=== PATIENT | female | born 1955 | race Caucasian/White ===

== ENCOUNTER → 2020-09-09 | Outpatient (CLI) | payer OTHER | LOC: M.CT 09:00 | PROVIDERS: ATTEND Internal Medicine | DX: Z13.6 Encounter for screening for cardiovascular disorders (principal) ==

== ENCOUNTER → 2020-09-22 | Outpatient (CLI) | payer BC ==
[~2020-09-22] MED LIST: COZAAR 25 MG TA25 M2 PO; NAPROSYN500 MG PO; NORVASC 2.5 MG2.5 M1 PO; OMEPRAZOLE40 MG PO; PRAVACHOL 20 MG20 M1 PO; RESTORIL30 MG PO; SERTRALINE HCL100 MG PO; SPIRONOLACTONE25 M1 PO; STIOLTO RESPIMAT4 GM INH
--- NOTE | 2020-09-22 17:00 | EXE ---
[place] [address] STRESS ECHOCARDIOGRAM Name: ALOK NEVES Room: [facility]#: [id number] Admission: 09/22/20 Attend Phys: ArtemAlok Pratt, Discharge: Date of : 55 Date of Service: 09/22/20 1700 Report #: [id number] THIS REPORT FOR: cc: Angela Nathan MD, Kelly M. MD Blick, David R. MD [facility] ~ APPROVED REPORT Study performed: 09/22/2020 15:30:44 Exam: Dobutamine Stress Echo Indication: Dyspnea Patient Location: Out-Patient Stress Nurse: Kelly Guerrero RN Supervising Physician: Felix Maldonado MD Ht: 5 ft 6 in HR: 66 bpm BP: 145/65 mmHg Medical History Cardiac Risk Factors: Age, , Hyperlipidemia, HTN, DM, Tobacco History (Former), FHX of CAD Procedure The patient underwent a Pharmacological Stress Test using Dobutamine. Blood pressure, heart rate, and EKG were monitored. An Echocardiogram was performed by medication reconciliation technician in four stages in quad fashion. At peak stress, four selected images were obtained and placed side by side with resting images for comparison. Echo Enhancing Agent Indication: Endocardial border delineation Agent(s) / Amount(s) Used: Optison 10 cc Stress Test Details Stress Test: Pharmacological Stress Test using Dobutamine. Reason for pharmacologic stress test: physical limitation. HR Resting HR: 66 bpm Max Heart Rate (APMHR): 155 bpm Max HR Achieved: 136 bpm Target HR (85% APMHR): 131 bpm % of APMHR: 87 Recovery HR: 98 bpm HR response to stress: Normal [place] [address] STRESS ECHOCARDIOGRAM Name: ALOK NEVES Room: [facility]#: [id number] Admission: 09/22/20 Attend Phys: Kaushal Pratt, Discharge: Date of : 55 Date of Service: 09/22/20 1700 Report #: [id number] Resting BP: 145/65 mmHg Max BP: 205/68 mmHg Recovery BP: 129/68 mmHg BP response to stress: Normal blood pressure response to stress. ECG Resting ECG: Sinus Rhythm Stress ECG: Sinus Rhythm, nonspecific ST-T abnormalities ST Change: Upsloping ST depression Maximum ST Deviation: 1 mm Arrhythmia: VPC's Recovery ECG: Sinus Rhythm, nonspecific ST-T abnormalities Recovery ST Change: Upsloping ST depression Recovery ST Deviation: 0.5 mm Recovery Arrhythmia: VPC Clinical Reason for Termination: Completed protocol Pre-Stress Echo The resting Echocardiogram showed normal left ventricular contractility with an estimated Ejection Fraction of about 50-55%. Post-Stress Echo The stress Echocardiogram showed normal left ventricular contractility with an estimated Ejection Fraction of about 65-70%. Compared to rest, there were no stress-induced wall motion abnormalities. Conclusion Clinical Response: Non-ischemic Stress ECG Response: Indeterminant Stress Echo Images: Non-ischemic low risk dobutamine stress echo for predicting future cardiac events Other Information Study Quality: [place] [address] STRESS ECHOCARDIOGRAM Name: ALOK NEVES Room: [facility]#: [id number] Admission: 09/22/20 Attend Phys: Kaushal Pratt, Discharge: Date of : 55 Date of Service: 09/22/201699 Report #: [id number] <Conclusion> low risk dobutamine stress echo for predicting future cardiac events <ELECTRONICALLY SIGNED> By: Felix Maldonado MD, FACC 09/22/201699 99 99 Felix Maldonado MD, FACC /INF
== END ==
LOC: M.CRD 14:55
PROVIDERS: ATTEND Internal Medicine
DX: I25.10 Atherosclerotic heart disease of native coronary artery without angina pectoris (principal); I25.84 Coronary atherosclerosis due to calcified coronary lesion